=== PATIENT | male | born 1975 | race American Indian/Alaskan Native ===

== ENCOUNTER 2016-11-16 10:43 | Emergency (ER) | payer SELFPAY ==
[2016-11-16 12:24] VITALS: BP 117/80
== END 2016-11-16 21:49 | disposition left against medical advice (07) ==
LOC: ED 10:43
DX: R21 Rash and other nonspecific skin eruption (principal); Z53.21 Procedure and treatment not carried out due to patient leaving prior to being seen by health care provider